=== PATIENT | male | born 1965 | race Caucasian/White ===

== ENCOUNTER → 2018-06-09 | Outpatient (CLI) | payer OTHER | LOC: M.RAD 13:30 → M.CT 13:30 → M.RAD 14:00 | DX: M16.0 Bilateral primary osteoarthritis of hip (principal); G95.89 Other specified diseases of spinal cord; R10.32 Left lower quadrant pain; M54.5 Low back pain; G89.29 Other chronic pain; Z68.33 Body mass index [BMI] 33.0-33.9, adult ==

== ENCOUNTER → 2018-06-15 | Outpatient (CLI) | payer OTHER | LOC: M.CT 11:30 | DX: G89.29 Other chronic pain (principal); M54.5 Low back pain; R10.32 Left lower quadrant pain; Z68.33 Body mass index [BMI] 33.0-33.9, adult ==